=== PATIENT | female | born 1950 | race Hispanic/Latino ===

== ENCOUNTER → 2019-04-05 | Outpatient (CLI) | payer OTHER ==
[~2019-04-05] MED LIST: AMLO-97 PO; GEMF600T5 PO; GLIP1TAB6 PO; HYDR25TA PO; INS7030 SQ; METO-391 PO; SITA100T12 PO
== END | disposition home or self-care (01) ==
LOC: RAH 09:57
PROVIDERS: ATTEND Family Medicine
DX: R92.8 Other abnormal and inconclusive findings on diagnostic imaging of breast (principal)
CPT/HCPCS: 77065

== ENCOUNTER → 2020-09-07 | Outpatient (CLI) | payer OTHER | END | disposition home or self-care (01) | LOC: RAH 12:51 | PROVIDERS: ATTEND Family Medicine | DX: Z12.31 Encounter for screening mammogram for malignant neoplasm of breast (principal); N64.89 Other specified disorders of breast | CPT/HCPCS: 77067 ==

== ENCOUNTER → 2022-12-12 | Outpatient (CLI) | payer OTHER ==
[~2022-12-12] MED LIST changes: +AMLO-142 PO; -AMLO-97 PO; -GEMF600T5 PO; +GEMF600T89 PO
== END | disposition home or self-care (01) ==
LOC: RAH 09:24
PROVIDERS: ATTEND Family Medicine
DX: Z12.31 Encounter for screening mammogram for malignant neoplasm of breast (principal); R92.1 Mammographic calcification found on diagnostic imaging of breast
CPT/HCPCS: 77067

== ENCOUNTER → 2023-12-15 | Outpatient (CLI) | payer OTHER | END | disposition home or self-care (01) | LOC: RAH 09:08 | PROVIDERS: ATTEND Family Medicine | DX: Z12.31 Encounter for screening mammogram for malignant neoplasm of breast (principal); R92.1 Mammographic calcification found on diagnostic imaging of breast | CPT/HCPCS: 77067 ==

== ENCOUNTER → 2024-09-06 | Outpatient (CLI) | payer OTHER ==
[2024-09-06] MEDS: REGADENOSON 0.4 MG/5 ML PF SYG IVP ONE (10:38)
--- NOTE | 2024-09-07 14:46 | HMCSR ---
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 Informerd consent was witnessed Robert CAT RN First, low dose rest was performed then high dose stress. RESTING DATA: The resting ekg shows: NSR Rest SPECT myocardial perfusion imaging was performed in supine position 61 minutes following the int ravenous injection of 12.5 mCi of Tc-99 Sestamibi. Time of rest injection: 09:18: Date: 09/06/2024 Time of rest imagin:19: Date: 09/06/2024 PHARMACOLOGIC STRESS: Pharmacologic stress test was performed by injecting regadenoson 0.4 mg IV push followed by the intra venous injection of 31.0 mCi of Tc-99 Sestamibi. Time of stress injection: 10:49: Date: 09/06/2024 Time of stress imagin:18: Date: 09/06/2024 Heart Rate at time of stress injection: 87 bpm. Gated Stress SPECT was performed 89 minutes after stress injection. The images were gated to evaluate regional wall motion and calculate left ventricular ejection fracti on. STRESS DETAILS Reason for Termination: Infusion complete Stress Symptoms: Dyspnea Max HR Achieved: 84 bpm % of APMHR Achieved: 58 Max Blood Pressure: 137/68 mmHg Stress ECG: NSR Conclusion No ischemia No infarct Fixed inferior defect, possible diaphragm attenuation artifact LV ejection fractijon 59% Normal LV wall motion Normal LV size at rest and stress No increased lung uptake
== END | disposition home or self-care (01) ==
LOC: SHCH 08:50
PROVIDERS: ATTEND Internal Medicine Cardiovascular Disease
DX: I25.10 Atherosclerotic heart disease of native coronary artery without angina pectoris (principal); R06.00 Dyspnea, unspecified
CPT/HCPCS: 78452; 93017; J2785; A9500 ×2